=== PATIENT | male | born 2000 | race Caucasian/White ===

== ENCOUNTER 2019-09-10 19:28 | Emergency (ER) | payer BC ==
[2019-09-10 19:40] VITALS: BP 111/57; PULSE 92; TEMP 98.2; BMI 21.6
--- NOTE | 2019-09-10 19:40 | PDOC ---
Rapid Medical Evaluation Chief Complaint: Pain Time Seen by Provider: 09/10/19 19:37 Medical Evaluation: 09/10/19 19:39 I have performed a brief in-person evaluation of this patient. The patient presents with a chief complaint of:left 5th digit pain / playing football and twisted Pertinent physical exam findings: swollen and painful PIP-DIP. I have ordered the following: XraY The patient will proceed to the ED for further evaluation. Discharge Disposition - Diagnosis Finger injury - Discharge Dispostion Condition at time of disposition: Stable - Referrals - Patient Instructions - Post Discharge Activity
--- NOTE | 2019-09-10 20:52 | PDOC ---
History of Present Illness - General Chief Complaint: Pain Stated Complaint: FINGER INJURY Time Seen by Provider: 09/10/19 19:37 History Source: Patient Exam Limitations: No Limitations - History of Present Illness Initial Comments: 09/10/19 20:46 was playimng football today and hyperflexed/ jammed left 5th digit. Has pain and swelling to PIP and DIP with limnited ROM. Occurred: reports: just prior to arrival, this afternoon Severity: reports: mild, moderate Pain Location: reports: upper extremity (left 5th digit ) Modifying Factors: improves with: cold therapy Associated Symptoms (Fall): denies symptoms Past History - Travel Traveled outside of the country in the last 30 days: No Close contact w/someone who was outside of country & ill: No - Past Medical History Allergies/Adverse Reactions: Allergies Allergy/AdvReac Type Severity Reaction Status Date / Time No Known Allergies Allergy Verified 09/10/19 19:40 COPD: No - Psycho Social/Smoking Cessation Hx Smoking History: Never smoked Review of Systems - Review of Systems Able to Perform ROS?: Yes Is the patient limited Romanian proficient: Yes Constitutional: Yes: Symptoms Reported, See HPI. No: Fever, Malaise Musculoskeletal: Yes: Symptoms Reported, See HPI, Joint Pain (left 5th digit) Integumentary: Yes: Symptoms Reported, See HPI, Bruising All Other Systems: Reviewed and Negative *Physical Exam - Vital Signs Last Vital Signs Temp Pulse Resp BP Pulse Ox 98.2 F 92 H 19 111/57 L 100 09/10/19 19:37 09/10/19 19:37 09/10/19 19:37 09/10/19 19:37 09/10/19 19:37 - Physical Exam General Appearance: Yes: Nourished, Appropriately Dressed, Apparent Distress, Mild Distress HEENT: positive: DEISI, Normal ENT Inspection, TMs Normal, Pharynx Normal Neck: positive: Supple. negative: Tender Respiratory/Chest: positive: Lungs Clear Musculoskeletal: positive: Normal Inspection Extremity: positive: Normal Capillary Refill, Normal Inspection. 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 NML intact, Fully Oriented, Alert, Normal Mood/ Affect, Normal Response, Motor Strength 5/5 ED Treatment Course - RADIOLOGY Radiology Studies Ordered: Category Date Time Status FINGER(S) LEFT [RAD] Stat Radiology 09/10/19 19:38 Ordered ED Progress Note - Progress Note Progress Note: 09/10/19 20:49 finger Discharge - Discharge Information Problems reviewed: Yes Clinical Impression/Diagnosis: Finger injury Qualifiers: Encounter type: initial encounter Laterality: left Qualified Code(s): S69.92XA - Unspecified injury of left wrist, hand and finger(s), initial encounter Condition: Stable Disposition: HOME - Admission No - Follow up/Referral Referrals: Familia Medely MD [Staff Physician] - - Patient Discharge Instructions Patient Printed Discharge Instructions: DI for Finger Sprain Additional Instructions: Rest, Ice , Elevate Splint on until pain resolves or cleared - Post Discharge Activity Work/Back to School Note: Back to Work
== END 2019-09-10 21:28 | disposition home or self-care (01) ==
LOC: JERFT 19:28
PROC: 2W3KX1Z Immobilization of Left Finger using Splint (ICD-10-PCS; principal; 2019-09-10)
DX: S69.82XA Other specified injuries of left wrist, hand and finger(s), initial encounter (principal); X50.9XXA Other and unspecified overexertion or strenuous movements or postures, initial encounter; Y93.61 Activity, american tackle football; Y92.89 Other specified places as the place of occurrence of the external cause; Y99.8 Other external cause status
CPT/HCPCS: 73140-TC-LT-FY; 99282-25